=== PATIENT | female | born 1960 ===

== ENCOUNTER → 2019-04-27 | Outpatient (REF) | payer BC | LOC: M LAB LCGH 12:13 | PROVIDERS: ATTEND Nurse Practitioner Adult Health | DX: Z12.4 Encounter for screening for malignant neoplasm of cervix (principal) | CPT/HCPCS: 87624; G0123 ==

== ENCOUNTER → 2019-05-05 | Outpatient (REF) | LOC: M LAB LCGH 19:39 | PROVIDERS: ATTEND Obstetrics & Gynecology | DX: N92.1 Excessive and frequent menstruation with irregular cycle (principal) ==

== ENCOUNTER → 2019-06-25 | Outpatient (REF) | payer BC | LOC: M LAB LCGH 12:33 | PROVIDERS: ATTEND Obstetrics & Gynecology | DX: D25.9 Leiomyoma of uterus, unspecified (principal) ==